=== PATIENT | female | born 2000 | race African-American/Black ===

== ENCOUNTER 2020-08-20 14:24 | Emergency (ER) | payer SELFPAY | END 2020-08-20 14:56 | disposition home or self-care (01) | LOC: CSHERS 14:24 | DX: F10.129 Alcohol abuse with intoxication, unspecified (principal); Y90.9 Presence of alcohol in blood, level not specified | CPT/HCPCS: 99283 ==

== ENCOUNTER 2020-10-07 09:57 | Emergency (ER) | payer SELFPAY ==
[2020-10-07] MEDS ORDERED: Ondansetron PF 4 MG/2 ML Vial ONE (10:49)
[2020-10-07 11:04] LABS: #Monocytes 0.6 10x3/uL (0.0-1.1); #Neutrophils 4.6 10x3/uL (1.5-8.4); %Basophils 0.5 % (0.0-2.0); %Eosinophils 0.2 % (0.0-6.0); %Lymphocytes 18.4 % (18.0-47.0); %Monocytes 9.5 % (0.0-10.0); %Neutrophils 70.9 % (40.0-75.0); Hemoglobin 11.6 g/dL (12.0-15.5); Mean Corpuscular HGB CONC 30.3 g/dL (32.0-36.0); Mean Corpuscular Hemoglobin 24.2 pg (27.0-33.0); Mean Platelet Volume 9.9 fl (7.4-10.4); Platelet Count 279 10x3/uL (150-450); RBC Distribution Width 14.8 % (11.5-14.5); Red Blood Cell (RBC) Count 4.79 10x6/uL (3.90-5.03); White Blood Cell (WBC) Count 6.4 10x3/uL (3.5-10.5)
[2020-10-07 11:16] LABS: BHCG - Serum Negative (NEGATIVE); Pregs Control Background? CLEAR/WHITE (CLR/WHITE); Pregs Control Bar Appear? YES (CONTROL BAR)
[2020-10-07 11:23] LABS: ALT (SGPT) 12 U/L (8-55); AST (SGOT) 26 U/L (5-34); Albumin 4.1 g/dL (3.5-5.0); Alkaline Phosphatase 91 U/L (40-110); Anion Gap 15 mmol/L (10-20); BUN (Urea Nitrogen) 7 mg/dL (7.0-18.7); Bilirubin, Total 0.5 mg/dL (0.2-1.2); Calc. Creatinine Clearance 0 mL/min (70-130); Calcium 9.1 mg/dL (7.8-10.44); Carbon Dioxide 19 mmol/L (22-29); Chloride 107 mmol/L (98-107); Glucose 94 mg/dL (70-105); Protein, Total 8.1 g/dL (6.0-8.3); Sodium 137 mmol/L (136-145)
== END 2020-10-07 12:45 | disposition home or self-care (01) ==
LOC: CSHERS 09:57
DX: R11.2 Nausea with vomiting, unspecified (principal); F17.210 Nicotine dependence, cigarettes, uncomplicated
CPT/HCPCS: 80053; 84703; 85025; 96374; J2405

== ENCOUNTER 2021-05-12 08:58 | Emergency (ER) | payer SELFPAY ==
[2021-05-12] MEDS ORDERED: Dexamethasone 10 MG/ML VIAL ONE (11:03)
[2021-05-12] MEDS ORDERED: Ketorolac Tromethamine 30 MG/ML VIAL ONE (11:04)
[2021-05-12] MEDS ORDERED: cefTRIAXone\\ROCEPHIN 1 GM VIAL ONE (11:04)
[2021-05-12] MEDS ORDERED: Lidocaine 1% MPF 2 ML VIAL ONE (11:08)
== END 2021-05-12 12:15 | disposition home or self-care (01) ==
LOC: CSHERS 08:58
DX: J36 Peritonsillar abscess (principal); F17.210 Nicotine dependence, cigarettes, uncomplicated
CPT/HCPCS: 96372; 99283; J0696; J1100; J1885

== ENCOUNTER 2021-07-01 14:30 | Emergency (ER) | payer OTHER, SELFPAY ==
[2021-07-01 15:19] LABS: Pregnancy Test - Urine (BHCG) Negative (Negative); Pregu Control Background? CLEAR/WHITE (CLR/WHITE); Pregu Control Bar Appear? YES (CONTROL BAR); Specific Gravity 1.015 (1.002-1.036)
[2021-07-01] MEDS ORDERED: Morphine 4 MG/ML VIAL ONE (15:26)
[2021-07-01] MEDS ORDERED: Famotidine/PF 20 mg/2ml Vial ONE (15:26)
[2021-07-01] MEDS ORDERED: Ketorolac Tromethamine 30 MG/ML VIAL ONE (15:52)
[2021-07-01 16:35] LABS: Hemoglobin 10.5 g/dL (12.0-15.5); Mean Corpuscular Hemoglobin 24.5 pg (27.0-33.0); Mean Platelet Volume 10.3 fl (7.4-10.4); Platelet Count 245 10x3/uL (150-450); RBC Distribution Width 14.7 % (11.5-14.5); Red Blood Cell (RBC) Count 4.29 10x6/uL (3.90-5.03); White Blood Cell (WBC) Count 5.1 10x3/uL (3.5-10.5)
[2021-07-01 16:51] LABS: ALT (SGPT) 16 U/L (8-55); AST (SGOT) 18 U/L (5-34); Alkaline Phosphatase 77 U/L (40-110); Anion Gap 11 mmol/L (10-20); BUN (Urea Nitrogen) 5 mg/dL (7.0-18.7); Bilirubin, Total 0.5 mg/dL (0.2-1.2); Calc. Creatinine Clearance 0 mL/min (70-130); Calcium 8.1 mg/dL (7.8-10.44); Carbon Dioxide 25 mmol/L (22-29); Chloride 106 mmol/L (98-107); Globulin 2.6 g/dL (2.4-3.5); Glucose 106 mg/dL (70-105); Lipase 22 U/L (8-78); Potassium 3.1 mmol/L (3.5-5.1); Protein, Total 6.6 g/dL (6.0-8.3); Sodium 139 mmol/L (136-145)
[2021-07-01 17:12] LABS: Lymphocytes 13 % (21-51); Monocytes 4 % (0-10)
[2021-07-01 17:13] LABS: Neutrophil 83 % (42-75)
[2021-07-01 17:15] LABS: MDiff Complete? YES; Platelet Morphology Comment Appears Adequate; RBC Morphology Normal
== END 2021-07-01 17:13 | disposition home or self-care (01) ==
LOC: CSHERS 14:30
DX: R07.2 Precordial pain (principal); R11.2 Nausea with vomiting, unspecified; F17.210 Nicotine dependence, cigarettes, uncomplicated
CPT/HCPCS: 71250; 80053; 81025; 83690; 84484; 85025; 93005; 96374; 96375; J1885; J2270; S0028

== ENCOUNTER 2021-10-05 19:12 | Emergency (ER) | payer SELFPAY ==
[2021-10-05] MEDS ORDERED: Acetaminophen 500 MG TAB ONE (20:12)
== END 2021-10-05 21:15 | disposition home or self-care (01) ==
LOC: CSHERS 19:12
DX: S80.212A Abrasion, left knee, initial encounter (principal); L05.01 Pilonidal cyst with abscess; F17.210 Nicotine dependence, cigarettes, uncomplicated; Y04.0XXA Assault by unarmed brawl or fight, initial encounter

== ENCOUNTER 2021-10-12 08:17 | Emergency (ER) | payer SELFPAY ==
[2021-10-12 18:15] LABS: SARS-CoV-2 PCR by NAA Not Detected (NotDetected)
== END 2021-10-12 09:35 | disposition home or self-care (01) ==
LOC: CSHERS 08:17
DX: L05.01 Pilonidal cyst with abscess (principal); Z20.822 Contact with and (suspected) exposure to COVID-19; F17.210 Nicotine dependence, cigarettes, uncomplicated
CPT/HCPCS: 99283; U0003; U0005

== ENCOUNTER 2021-10-25 22:21 | Emergency (ER) | payer BC, SELFPAY | END 2021-10-25 22:45 | disposition home or self-care (01) | LOC: CSHERS 22:21 | DX: Z00.00 Encounter for general adult medical examination without abnormal findings (principal); F17.210 Nicotine dependence, cigarettes, uncomplicated | CPT/HCPCS: 99281 ==

== ENCOUNTER 2021-10-30 06:53 | Emergency (ER) | payer BC, SELFPAY ==
[2021-10-30] MEDS ORDERED: Acetaminophen 500 MG TAB ONE (07:58)
[2021-10-30] MEDS ORDERED: Ibuprofen 200 MG TAB ONE (07:58)
== END 2021-10-30 07:59 | disposition home or self-care (01) ==
LOC: CSHERS 06:53
DX: U07.1 COVID-19 (principal); J06.9 Acute upper respiratory infection, unspecified; F17.210 Nicotine dependence, cigarettes, uncomplicated
CPT/HCPCS: 99283; U0003; U0005

== ENCOUNTER 2021-10-31 01:23 | Emergency (ER) | payer BC ==
[2021-10-31] MEDS ORDERED: Ondansetron ODT 4 MG TAB ONE (01:51)
[2021-10-31] MEDS ORDERED: Ibuprofen 200 MG TAB ONE (01:52)
== END 2021-10-31 02:15 | disposition home or self-care (01) ==
LOC: CSHERS 01:23
DX: U07.1 COVID-19 (principal); F17.210 Nicotine dependence, cigarettes, uncomplicated
CPT/HCPCS: 99283; Q0162

== ENCOUNTER 2021-12-22 22:03 | Emergency (ER) | payer BC | END 2021-12-22 23:20 | disposition home or self-care (01) | LOC: CSHERS 22:03 | DX: E86.0 Dehydration (principal); F17.210 Nicotine dependence, cigarettes, uncomplicated | CPT/HCPCS: 99283 ==